=== PATIENT | female | born 1970 | race African-American/Black ===

== ENCOUNTER 2022-01-15 19:17 | Emergency (ER) | payer OTHER ==
[2022-01-15] MEDS ORDERED: Dexamethasone 10 MG/ML VIAL ONE (22:14)
[2022-01-15] MEDS ORDERED: Ketorolac Tromethamine 30 MG/ML VIAL ONE (22:15)
[2022-01-15] MEDS ORDERED: Diazepam 5 MG TAB ONE (22:15)
== END 2022-01-15 22:10 | disposition home or self-care (01) ==
LOC: CSHERS 19:17
DX: S39.012A Strain of muscle, fascia and tendon of lower back, initial encounter (principal); X50.9XXA Other and unspecified overexertion or strenuous movements or postures, initial encounter
CPT/HCPCS: 96372; 99283; J1100; J1885